=== PATIENT | female | born 2000 | race Caucasian/White ===

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

== ENCOUNTER 2022-09-09 09:42 | Emergency (ER) | payer BC ==
[2022-09-09] MEDS ORDERED: Sodium Chloride 0.9% 1,000 ML IV SCH (11:30)
[2022-09-09] MEDS ORDERED: Ondansetron 4 MG/2 ML SDV IVPUSH ONE (11:37)
[2022-09-09] MEDS ORDERED: HYDROmorphone 1 MG/ML Syringe IVPUSH ONE (11:37)
[2022-09-09] MEDS ORDERED: Iopamidol 612 MG/ML 100 ML Bottle IVPUSH ONE (11:41)
[2022-09-09] MEDS ORDERED: Sodium Chloride 0.9% 10 ML Syringe FLUSH ONE (11:41)
[2022-09-09] MEDS ORDERED: cefTRIAXone 1 GM in Sodium Chloride 0.9% 100 ML IV STA (12:15)
== END 2022-09-09 14:05 | disposition home or self-care (01) ==
LOC: JD.ED 09:42
DX: N83.201 Unspecified ovarian cyst, right side (principal); N39.0 Urinary tract infection, site not specified; Z86.16 Personal history of COVID-19
CPT/HCPCS: 36415; 74177; 76705; 80053; 81001; 84702; 85025; 87086; 87088; 87186; 96361; 96365; 96375; 99284; J0696; J1170; J2405; J3490; J7030; Q9967

== ENCOUNTER 2023-04-22 23:17 | Emergency (ER) | payer BC ==
[2023-04-23] MEDS ORDERED: Ketorolac 60 MG/2 ML SDV IM ONE (00:26)
== END 2023-04-23 03:48 | disposition home or self-care (01) ==
LOC: JD.ED 23:17
DX: S76.011A Strain of muscle, fascia and tendon of right hip, initial encounter (principal); Z86.16 Personal history of COVID-19; X50.1XXA Overexertion from prolonged static or awkward postures, initial encounter
CPT/HCPCS: 73502; 73700; 96372; 99284; J1885; 99282

== ENCOUNTER 2024-05-26 16:08 | Emergency (ER) | payer BC ==
[2024-05-26] MEDS: Magnesium Citrate Solution 296 ML Bottle PO ONE (17:34)
== END 2024-05-26 17:56 | disposition home or self-care (01) ==
LOC: JD.ED 16:08
DX: K59.00 Constipation, unspecified (principal); F17.210 Nicotine dependence, cigarettes, uncomplicated; Z86.16 Personal history of COVID-19; Z79.899 Other long term (current) drug therapy
CPT/HCPCS: 99283; A9270

== ENCOUNTER 2025-04-16 | Emergency (ER) | payer OTHER | END 2025-04-16 01:04 | disposition home or self-care (01) | LOC: JD.ED | DX: O99.891 Other specified diseases and conditions complicating pregnancy (principal); K08.89 Other specified disorders of teeth and supporting structures; Z88.0 Allergy status to penicillin; Z3A.27 27 weeks gestation of pregnancy | CPT/HCPCS: 99282 ==